=== PATIENT | female | born 1975 | race American Indian/Alaskan Native ===

== ENCOUNTER 2017-07-17 20:05 | Inpatient (IN) | payer OTHER ==
[2017-07-17 20:05] VITALS: BMI 36.8
[2017-07-17] MEDS ORDERED: Aspirin 325 mg EC Tablets PO STA (20:31)
--- NOTE | 2017-07-17 20:31 | C.PDOC ---
History Of Present Illness 42 year old female presents to the ED c/o on and off chest pain that started yesterday. Patient described her pain as dull, aching and non radiating and rates it a 4/10 discomfort. Patient reports pain started at work but since she has been feeling more discomfort. Patient denies fever, chill, nausea, vomit, SOB, weakness, numbness. Time Seen by Provider: 07/17/17 20:30 Chief Complaint (Nursing): Chest Pain History Per: Patient History/Exam Limitations: no limitations Onset/Duration Of Symptoms: Days Current Symptoms Are (Timing): Still Present Context: Other Severity: Moderate Pain Scale Rating Of: 4 Quality: Dull, Aching Modifying Factors: None Exacerbating Factors: None Recent travel outside of the [place]: No Additional History Per: Patient Past Medical History Reviewed: Historical Data, Nursing Documentation, Vital Signs Vital Signs: Last Vital Signs Temp 98.2 F 07/17/17 23:22 Pulse 66 07/17/17 23:22 Resp 14 07/17/17 23:22 BP 112/78 07/17/17 23:22 Pulse Ox 100 07/17/17 23:22 - Medical History PMH: Anemia (with iron transfusions), Asthma, Bronchitis, Colonic Polyps, Diabetes, Fractures (ORIF right wrist ), Gastritis, HTN, Migraine, Sleep Apnea Denies: Anxiety, Bipolar Disorder, COPD, Depression, Paranoia, Post Traumatic Stress Disorder, Chronic Kidney Disease, Schizophrenia Surgical History: Endoscopy - [facility] Procedures ENDO RECTUM POLYPECTOMY (07/27/14) ENDOSC POLYPECTOMY OF LG INTEST (07/27/14) INJECT/INFUSE ELECTROLYT (03/22/14) INJECT/INFUSE NEC (08/24/14) PHYSICAL THERAPY NEC (11/02/14) URETHRAL DILATION (02/22/13) Family History: States: No Known Family Hx - Social History Hx Tobacco Use: No Hx Alcohol Use: Yes Hx Substance Use: No - Immunization History Hx Tetanus Toxoid Vaccination: No Hx Influenza Vaccination: No Hx Pneumococcal Vaccination: No Review Of Systems Constitutional: Negative for: Fever, Chills Eyes: Negative for: Vision Change ENT: Negative for: Throat Pain Cardiovascular: Positive for: Chest Pain Respiratory: Negative for: Shortness of Breath Gastrointestinal: Negative for: Nausea, Vomiting, Diarrhea Genitourinary: Negative for: Dysuria Musculoskeletal: Negative for: Back Pain Skin: Negative for: Rash Neurological: Negative for: Weakness, Numbness, Headache Psych: Negative for: Anxiety Physical Exam - Physical Exam Appears: Non-toxic, No Acute Distress Skin: Warm, Dry Head: Normacephalic Eye(s): bilateral: Normal Inspection Nose: No Discharge Oral Mucosa: Moist Neck: Supple Chest: Symmetrical Cardiovascular: Rhythm Regular, No Murmur Respiratory: No Rales, No Rhonchi, No Wheezing Gastrointestinal/Abdominal: Soft, No Tenderness, No Guarding, No Rebound Back: Normal Inspection Extremity: Normal ROM Extremity: Bilateral: Atraumatic, Normal Color And Temperature, Normal ROM Pulses: Left Dorsalis Pedis: Normal, Right Dorsalis Pedis: Normal Neurological/Psych: Oriented x3, Normal Speech, Normal Cognition Gait: Steady ED Course And Treatment - Laboratory Results Result Diagrams: 07/17/17 20:57 07/17/17 20:57 ECG: Interpreted By Me, Viewed By Me ECG Rhythm: Sinus Rhythm (73), Nonspecific Changes O2 Sat by Pulse Oximetry: 100 (On RA) Pulse Ox Interpretation: Normal - Radiology CXR: Interpreted by Me, Viewed By Me CXR Interpretation: No: Infiltrates, Fracture, Pnemothorax Progress Note: Plan: - EKG. - Labs. - Ecotrin 325 mg PO. - Potassium chloride 20 meq. - Protonix 40 mg IVP. - UA Disposition Discussed With : Brianne Adler Comment: accepted the pt on his service and took over the care at 10:40 PM Doctor Will See Patient In The: Hospital Counseled Patient/Family Regarding: Studies Performed, Diagnosis - Disposition Disposition: HOSPITALIZED Disposition Time: 20:31 Condition: FAIR - POA Present On Arrival: None - Clinical Impression Clinical Impression: Chest pain, UTI (urinary tract infection) - Scribe Statement The provider has reviewed the documentation as recorded by the Scribe John Knutson All medical record entries made by the Scribe were at my direction and personally dictated by me. I have reviewed the chart and agree that the record accurately reflects my personal performance of the history, physical exam, medical decision making, and the department course for this patient. I have also personally directed, reviewed, and agree with the discharge instructions and disposition. Decision To Admit - Pt Status Changed To: Hospital Disposition Of: Inpatient - Admit Certification Admit to Inpatient:: After my assessment, the patient will require hospitalization for at least two midnights. This is because of the severity of symptoms shown, intensity of services needed, and/or the medical risk in this patient being treated as an outpatient. - InPatient: Physician Admission Certification: I certify that this patient requires 2 or more midnights of care for the following reason:: After my assessment, the patient will require hospitalization for at least two midnights. This is because of the severity of symptoms shown, intensity of services needed, and/or the medical risk in this patient being treated as an outpatient. - . Bed Request Type: Telemetry Admitting Physician: Brianne Adler Patient Diagnosis: Chest pain, UTI (urinary tract infection)
[2017-07-17] MEDS ORDERED: Aspirin 325 mg EC Tablets PO ONE (20:39)
[2017-07-17 21:01] LABS: BASO % 0.4 % (0.0-2.0); EOS # 0.1 K/uL (0.0-0.7); EOS % 1.7 % (0.0-4.0); HEMOGLOBIN 10.4 g/dL (11.0-16.0); LYMPH # 1.6 K/uL (1.0-4.3); LYMPH % 38.7 % (20.0-40.0); MEAN CELL VOLUME 87.6 fL (81.0-99.0); MEAN CORPUSCULAR HEMOGLOBIN 28.6 pg (27.0-31.0); MEAN CORPUSCULAR HGB CONC 32.7 g/dL (33.0-37.0); MONO # 0.3 K/uL (0.0-0.8); NEUT # 2.2 K/uL (1.8-7.0); NEUT % 52.2 % (50.0-75.0); NRBC % 0.1 % (0.0-2.0); RBC 3.63 Mil/uL (3.80-5.20); RED CELL DISTRIBUTION WIDTH 14.4 % (11.5-14.5); WHITE BLOOD COUNT 4.2 K/uL (4.8-10.8)
[2017-07-17 21:10] LABS: INR 1.1; PROTHROMBIN TIME 11.9 SECONDS (9.7-12.2)
[2017-07-17 21:13] LABS: ALB/GLOB RATIO 1.1 (1.0-2.1); ALBUMIN 3.7 g/dL (3.5-5.0); ALT/SGPT 18 U/L (9-52); AST/SGOT 19 U/L (14-36); BLOOD UREA NITROGEN 7 mg/dL (7-17); CALCIUM 8.5 mg/dl (8.6-10.4); GFR AFRICAN-AMERICAN > 60; GFR NON-AFRICAN AMERICAN > 60
[2017-07-17] MEDS ORDERED: Potassium Chloride 10 mEq ER Tab PO STA (21:34)
[2017-07-17] MEDS ORDERED: Potassium Chloride 10 mEq ER Tab PO ONE (21:42)
[2017-07-17 22:29] LABS: SQUAMOUS EPITHIAL 10 /hpf (0-5); URINE BACTERIA FEW (<OCC); URINE BILIRUBIN NEGATIVE (NEGATIVE); URINE BLOOD 1+ (NEGATIVE); URINE CLARITY Hazy (Clear); URINE COLOR Yellow (YELLOW); URINE GLUCOSE (UA) NORMAL (Normal); URINE LEUKOCYTE ESTERASE 1+ Leu/uL (Negative); URINE PROTEIN NEGATIVE (NEGATIVE)
[2017-07-17 22:37] LABS: HCG,QUALITATIVE URINE NEGATIVE (NEGATIVE)
[2017-07-17] MEDS ORDERED: Piperacill/Tazo 3.375gm in Dex 3.375 GM/50 ML BAG IVPB STA (23:59)
--- NOTE | 2017-07-18 09:14 | RAD ---
PROCEDURE: CHEST RADIOGRAPH, 1 VIEW HISTORY: cp COMPARISON: None available. FINDINGS: LUNGS: Clear. PLEURA: No pneumothorax or pleural fluid seen. CARDIOVASCULAR: Normal. OSSEOUS STRUCTURES: No significant abnormalities. VISUALIZED UPPER ABDOMEN: Normal. OTHER FINDINGS: None. IMPRESSION: No active disease.
[2017-07-18] MEDS: Multiple Vitamins Tab PO SCH (10:51)
[2017-07-18] MEDS: Pantoprazole 40 mg EC Tab PO SCH (10:52)
[2017-07-18] MEDS: Enoxaparin 40 mg Syringe SC SCH (10:52)
[2017-07-18 11:39] LABS: CK-MB 0.44 ng/mL (0.0-3.38)
[2017-07-18] MEDS ORDERED: Nitroglycerin 2% Ointment Foilpak UD TOP PRN (16:43)
--- NOTE | 2017-07-18 16:43 | CP.PCM.HP ---
Past Patient History - Infectious Disease Hx of Infectious Diseases: None - Tetanus Immunizations Tetanus Immunization: Unknown - Past Medical History & Family History Past Medical History?: Yes - Past Social History Smoking Status: Current Some Days Smoker - CARDIAC Hx Cardiac Disorders: Yes Hx Hypertension: Yes - PULMONARY Hx Respiratory Disorders: Yes Hx Asthma: Yes Hx Bronchitis: Yes Hx Chronic Obstructive Pulmonary Disease (COPD): No Hx Sleep Apnea: Yes - NEUROLOGICAL Hx Neurological Disorder: Yes Hx Migraine: Yes - HEENT Hx HEENT Problems: No - RENAL Hx Chronic Kidney Disease: No - ENDOCRINE/METABOLIC Hx Endocrine Disorders: Yes Hx Diabetes Mellitus Type 2: Yes (diet controlled) - HEMATOLOGICAL/ONCOLOGICAL Hx Blood Disorders: Yes Hx Anemia: Yes (with iron transfusions) - INTEGUMENTARY Hx Dermatological Problems: No - MUSCULOSKELETAL/RHEUMATOLOGICAL Hx Musculoskeletal Disorders: Yes Hx Falls: No Hx Fractures: Yes (ORIF right wrist ) - GASTROINTESTINAL Hx Gastrointestinal Disorders: Yes Hx Gastritis: Yes - GENITOURINARY/GYNECOLOGICAL Hx Genitourinary Disorders: Yes (C SECTION,TUBAL LIGATION) - PSYCHIATRIC Hx Psychophysiologic Disorder: No Hx Anxiety: No Hx Bipolar Disorder: No Hx Depression: No Hx Paranoia: No Hx Post Traumatic Stress Disorder: No Hx Schizophrenia: No Hx Substance Use: No - SURGICAL HISTORY Hx Surgeries: Yes Hx Gastric Bypass Surgery: Yes (gastric sleeve 2013) Hx Orthopedic Surgery: Yes (right wrist ORIF ) Other/Comment: Hiatal hernia Sx - ANESTHESIA Hx Anesthesia: Yes Hx Anesthesia Reactions: No Hx Malignant Hyperthermia: No Meds Allergies/Adverse Reactions: Allergies Allergy/AdvReac Type Severity Reaction Status Date / Time morphine Allergy Mild RASH Verified 07/17/17 20:15 shellfish derived Allergy Mild RASH Verified 07/17/17 20:15 hydromorphone [From Dilaudid] Allergy RASH Verified 07/17/17 20:15 ondansetron Allergy RASH Verified 07/17/17 20:15 [From Zofran (as hydrochloride)] seafood Allergy Severe URTICARIA Uncoded 07/17/17 20:15 dust Allergy ITCHING Uncoded 07/17/17 20:15 Physical Exam - Constitutional Appears: Well - Head Exam Head Exam: ATRAUMATIC, NORMAL INSPECTION, NORMOCEPHALIC - Eye Exam Eye Exam: EOMI, Normal appearance, PERRL Pupil Exam: NORMAL ACCOMODATION, PERRL - ENT Exam ENT Exam: Mucous Membranes Moist, Normal Exam - Neck Exam Neck exam: Positive for: Normal Inspection - Respiratory Exam Respiratory Exam: Decreased Breath Sounds - Cardiovascular Exam Cardiovascular Exam: REGULAR RHYTHM, +S1, +S2 - GI/Abdominal Exam GI & Abdominal Exam: Diminished Bowel Sounds, Soft - Rectal Exam Rectal Exam: Deferred Results - Vital Signs Recent Vital Signs: Last Vital Signs Temp 98.0 F 07/18/17 07:45 Pulse 64 07/18/17 16:35 Resp 20 07/18/17 07:45 BP 93/58 L 07/18/17 10:52 Pulse Ox 98 07/18/17 07:45 - Labs Result Diagrams: 07/17/17 20:57 07/17/17 20:57 Labs: Laboratory Results - last 24 hr 07/17/17 07/17/17 07/17/17 20:57 20:57 20:57 WBC 4.2 L RBC 3.63 L Hgb 10.4 L Hct 31.8 L MCV 87.6 MCH 28.6 MCHC 32.7 L RDW 14.4 Plt Count 293 MPV 7.0 L Neut % (Auto) 52.2 Lymph % (Auto) 38.7 Butts % (Auto) 7.0 Eos % (Auto) 1.7 Baso % (Auto) 0.4 Neut # (Auto) 2.2 Lymph # (Auto) 1.6 Butts # (Auto) 0.3 Eos # (Auto) 0.1 Baso # (Auto) 0.0 PT 11.9 INR 1.1 APTT 30 Sodium 141 Potassium 3.3 L Chloride 109 H Carbon Dioxide 21 L Anion Gap 14 BUN 7 Creatinine 0.7 Est GFR ( Amer) > 60 Est GFR (Non-Af Amer) > 60 POC Glucose (mg/dL) Random Glucose 95 Calcium 8.5 L Total Bilirubin 0.3 AST 19 ALT 18 Alkaline Phosphatase 58 Total Creatine Kinase CK-MB (Mass) Troponin I < 0.0120 Total Protein 7.0 Albumin 3.7 Globulin 3.3 Albumin/Globulin Ratio 1.1 Urine Color Urine Clarity Urine pH Ur Specific [place] Urine Protein Urine Glucose (UA) Urine Ketones Urine Blood Urine Nitrate Urine Bilirubin Urine Urobilinogen Ur Leukocyte Esterase Urine WBC (Auto) Urine RBC (Auto) Ur Squamous Epith Cells Urine Bacteria Urine HCG, Qual 07/17/17 07/18/17 07/18/17 22:37 06:10 11:09 WBC RBC Hgb Hct MCV MCH MCHC RDW Plt Count MPV Neut % (Auto) Lymph % (Auto) Butts % (Auto) Eos % (Auto) Baso % (Auto) Neut # (Auto) Lymph # (Auto) Butts # (Auto) Eos # (Auto) Baso # (Auto) PT INR APTT Sodium Potassium Chloride Carbon Dioxide Anion Gap BUN Creatinine Est GFR ( Amer) Est GFR (Non-Af Amer) POC Glucose (mg/dL) 90 Random Glucose Calcium Total Bilirubin AST ALT Alkaline Phosphatase Total Creatine Kinase 260 H CK-MB (Mass) 0.44 Troponin I < 0.0120 Total Protein Albumin Globulin Albumin/Globulin Ratio Urine Color Yellow Urine Clarity Hazy Urine pH 5.0 Ur Specific [place] 1.027 Urine Protein Negative Urine Glucose (UA) Normal Urine Ketones Negative Urine Blood 1+ H Urine Nitrate Negative Urine Bilirubin Negative Urine Urobilinogen 2.0 H Ur Leukocyte Esterase 1+ H Urine WBC (Auto) 22 H Urine RBC (Auto) 8 H Ur Squamous Epith Cells 10 H Urine Bacteria Few H Urine HCG, Qual Negative 07/18/17 11:11 WBC RBC Hgb Hct MCV MCH MCHC RDW Plt Count MPV Neut % (Auto) Lymph % (Auto) Butts % (Auto) Eos % (Auto) Baso % (Auto) Neut # (Auto) Lymph # (Auto) Butts # (Auto) Eos # (Auto) Baso # (Auto) PT INR APTT Sodium Potassium Chloride Carbon Dioxide Anion Gap BUN Creatinine Est GFR ( Amer) Est GFR (Non-Af Amer) POC Glucose (mg/dL) 110 Random Glucose Calcium Total Bilirubin AST ALT Alkaline Phosphatase Total Creatine Kinase CK-MB (Mass) Troponin I Total Protein Albumin Globulin Albumin/Globulin Ratio Urine Color Urine Clarity Urine pH Ur Specific [place] Urine Protein Urine Glucose (UA) Urine Ketones Urine Blood Urine Nitrate Urine Bilirubin Urine Urobilinogen Ur Leukocyte Esterase Urine WBC (Auto) Urine RBC (Auto) Ur Squamous Epith Cells Urine Bacteria Urine HCG, Qual
--- NOTE | 2017-07-18 17:01 | CP.PCM.CON ---
History of Present Illness - History of Present Illness History of Present Illness: 42 with HTN, DM, admitted with CP 02/19 had Echo ESTat [facility] no Ischemia EF 75%, now no TX, No EKG changes, neg ENZ. non cardiac CP, was referred for evaluation after an outpt EKG was reported abnormal Review of Systems - Review of Systems Systems not reviewed;Unavailable: Acuity of Condition - Constitutional Constitutional: Anorexia, Weakness - EENT Eyes: absent: Discharge Ears: absent: Ear Discharge, Dizziness Nose/Mouth/Throat: absent: Epistaxis - Cardiovascular Cardiovascular: Chest Pain. absent: Acrocyanosis, Claudication, Diaphoresis, Leg Edema, Palpitations, Syncope - Respiratory Respiratory: absent: Cough, Dyspnea, Hemoptysis - Gastrointestinal Gastrointestinal: absent: Abdominal Pain, Diarrhea, Vomiting - Genitourinary Genitourinary: absent: Hematuria Past Patient History - Infectious Disease Hx of Infectious Diseases: None - Tetanus Immunizations Tetanus Immunization: Unknown - Past Medical History & Family History Past Medical History?: Yes - Past Social History Smoking Status: Current Some Days Smoker - CARDIAC Hx Cardiac Disorders: Yes Hx Hypertension: Yes - PULMONARY Hx Respiratory Disorders: Yes Hx Asthma: Yes Hx Bronchitis: Yes Hx Chronic Obstructive Pulmonary Disease (COPD): No Hx Sleep Apnea: Yes - NEUROLOGICAL Hx Neurological Disorder: Yes Hx Migraine: Yes - HEENT Hx HEENT Problems: No - RENAL Hx Chronic Kidney Disease: No - ENDOCRINE/METABOLIC Hx Endocrine Disorders: Yes Hx Diabetes Mellitus Type 2: Yes (diet controlled) - HEMATOLOGICAL/ONCOLOGICAL Hx Blood Disorders: Yes Hx Anemia: Yes (with iron transfusions) - INTEGUMENTARY Hx Dermatological Problems: No - MUSCULOSKELETAL/RHEUMATOLOGICAL Hx Musculoskeletal Disorders: Yes Hx Falls: No Hx Fractures: Yes (ORIF right wrist ) - GASTROINTESTINAL Hx Gastrointestinal Disorders: Yes Hx Gastritis: Yes - GENITOURINARY/GYNECOLOGICAL Hx Genitourinary Disorders: Yes (C SECTION,TUBAL LIGATION) - PSYCHIATRIC Hx Psychophysiologic Disorder: No Hx Anxiety: No Hx Bipolar Disorder: No Hx Depression: No Hx Paranoia: No Hx Post Traumatic Stress Disorder: No Hx Schizophrenia: No Hx Substance Use: No - SURGICAL HISTORY Hx Surgeries: Yes Hx Gastric Bypass Surgery: Yes (gastric sleeve 2013) Hx Orthopedic Surgery: Yes (right wrist ORIF ) Other/Comment: Hiatal hernia Sx - ANESTHESIA Hx Anesthesia: Yes Hx Anesthesia Reactions: No Hx Malignant Hyperthermia: No Meds Home Medications: Home Medication List Medication Instructions Recorded Confirmed Type Aspirin 325 mg PO DAILY #30 tab 07/19/17 Rx Nicotine [Nicotine Patch] 1 each TD DAILY 30 Days #30 07/19/17 Rx patch.[id number] Allergies/Adverse Reactions: Allergies Allergy/AdvReac Type Severity Reaction Status Date / Time morphine Allergy Mild RASH Verified 07/17/17 20:15 shellfish derived Allergy Mild RASH Verified 07/17/17 20:15 hydromorphone [From Dilaudid] Allergy RASH Verified 07/17/17 20:15 ondansetron Allergy RASH Verified 07/17/17 20:15 [From Zofran (as hydrochloride)] seafood Allergy Severe URTICARIA Uncoded 07/17/17 20:15 dust Allergy ITCHING Uncoded 07/17/17 20:15 - Medications Medications: Current Medications Aspirin (Aspirin) 325 mg PO DAILY [facility] Last Admin: 07/18/17 10:52 Dose: 325 mg Enoxaparin Sodium (Lovenox) 40 mg SC DAILY [facility] Last Admin: 07/18/17 10:52 Dose: 40 mg Ferrous Sulfate (Feosol) 325 mg PO BID [facility] Last Admin: 07/18/17 10:51 Dose: 325 mg Metoprolol Tartrate (Lopressor) 25 mg PO DAILY [facility] Last Admin: 07/18/17 10:52 Dose: Not Given Montelukast Sodium (Singulair) 10 mg PO [facility] Multivitamins (Hexavitamin) 1 tab PO DAILY [facility] Last Admin: 07/18/17 10:51 Dose: 1 tab Nitroglycerin (Nitro-Bid 2% Oint) 1 ea TOP Q6 PRN PRN Reason: chest pain Pantoprazole Sodium (Protonix Ec Tab) 40 mg PO DAILY [facility] Last Admin: 07/18/17 10:52 Dose: 40 mg Rosuvastatin Calcium (Crestor) 10 mg PO [facility] Physical Exam - Constitutional Appears: Non-toxic - Head Exam Head Exam: ATRAUMATIC - Eye Exam Eye Exam: EOMI - ENT Exam ENT Exam: Mucous Membranes Moist - Neck Exam Neck exam: Negative for: Lymphadenopathy, Thyromegaly - Respiratory Exam Respiratory Exam: Clear to Auscultation Bilateral. absent: Rales - Cardiovascular Exam Cardiovascular Exam: REGULAR RHYTHM, Systolic Murmur - GI/Abdominal Exam GI & Abdominal Exam: Normal Bowel Sounds. absent: Organomegaly - Rectal Exam Rectal Exam: Deferred - Extremities Exam Extremities exam: Positive for: normal capillary refill. Negative for: calf tenderness - Neurological Exam Neurological exam: Alert, Oriented x3 - Psychiatric Exam Psychiatric exam: Normal Mood - Skin Skin Exam: Dry Results - Vital Signs Recent Vital Signs: Last Vital Signs Temp 98.0 F 07/18/17 07:45 Pulse 64 07/18/17 16:35 Resp 20 07/18/17 07:45 BP 93/58 L 07/18/17 10:52 Pulse Ox 98 07/18/17 07:45 - Labs Result Diagrams: 07/17/17 20:57 07/17/17 20:57 Labs: Laboratory Results - last 24 hr 07/17/17 07/17/17 07/17/17 20:57 20:57 20:57 WBC 4.2 L RBC 3.63 L Hgb 10.4 L Hct 31.8 L MCV 87.6 MCH 28.6 MCHC 32.7 L RDW 14.4 Plt Count 293 MPV 7.0 L Neut % (Auto) 52.2 Lymph % (Auto) 38.7 [place] % (Auto) 7.0 Eos % (Auto) 1.7 Baso % (Auto) 0.4 Neut # (Auto) 2.2 Lymph # (Auto) 1.6 [place] # (Auto) 0.3 Eos # (Auto) 0.1 Baso # (Auto) 0.0 PT 11.9 INR 1.1 APTT 30 Sodium 141 Potassium 3.3 L Chloride 109 H Carbon Dioxide 21 L Anion Gap 14 BUN 7 Creatinine 0.7 Est GFR ( Amer) > 60 Est GFR (Non-Af Amer) > 60 POC Glucose (mg/dL) Random Glucose 95 Calcium 8.5 L Total Bilirubin 0.3 AST 19 ALT 18 Alkaline Phosphatase 58 Total Creatine Kinase CK-MB (Mass) Troponin I < 0.0120 Total Protein 7.0 Albumin 3.7 Globulin 3.3 Albumin/Globulin Ratio 1.1 Urine Color Urine Clarity Urine pH Ur Specific [place] Urine Protein Urine Glucose (UA) Urine Ketones Urine Blood Urine Nitrate Urine Bilirubin Urine Urobilinogen Ur Leukocyte Esterase Urine WBC (Auto) Urine RBC (Auto) Ur Squamous Epith Cells Urine Bacteria Urine HCG, Qual 07/17/17 07/18/17 07/18/17 22:37 06:10 11:09 WBC RBC Hgb Hct MCV MCH MCHC RDW Plt Count MPV Neut % (Auto) Lymph % (Auto) [place] % (Auto) Eos % (Auto) Baso % (Auto) Neut # (Auto) Lymph # (Auto) [place] # (Auto) Eos # (Auto) Baso # (Auto) PT INR APTT Sodium Potassium Chloride Carbon Dioxide Anion Gap BUN Creatinine Est GFR ( Amer) Est GFR (Non-Af Amer) POC Glucose (mg/dL) 90 Random Glucose Calcium Total Bilirubin AST ALT Alkaline Phosphatase Total Creatine Kinase 260 H CK-MB (Mass) 0.44 Troponin I < 0.0120 Total Protein Albumin Globulin Albumin/Globulin Ratio Urine Color Yellow Urine Clarity Hazy Urine pH 5.0 Ur Specific [place] 1.027 Urine Protein Negative Urine Glucose (UA) Normal Urine Ketones Negative Urine Blood 1+ H Urine Nitrate Negative Urine Bilirubin Negative Urine Urobilinogen 2.0 H Ur Leukocyte Esterase 1+ H Urine WBC (Auto) 22 H Urine RBC (Auto) 8 H Ur Squamous Epith Cells 10 H Urine Bacteria Few H Urine HCG, Qual Negative 07/18/17 11:11 WBC RBC Hgb Hct MCV MCH MCHC RDW Plt Count MPV Neut % (Auto) Lymph % (Auto) [place] % (Auto) Eos % (Auto) Baso % (Auto) Neut # (Auto) Lymph # (Auto) [place] # (Auto) Eos # (Auto) Baso # (Auto) PT INR APTT Sodium Potassium Chloride Carbon Dioxide Anion Gap BUN Creatinine Est GFR ( Amer) Est GFR (Non-Af Amer) POC Glucose (mg/dL) 110 Random Glucose Calcium Total Bilirubin AST ALT Alkaline Phosphatase Total Creatine Kinase CK-MB (Mass) Troponin I Total Protein Albumin Globulin Albumin/Globulin Ratio Urine Color Urine Clarity Urine pH Ur Specific [place] Urine Protein Urine Glucose (UA) Urine Ketones Urine Blood Urine Nitrate Urine Bilirubin Urine Urobilinogen Ur Leukocyte Esterase Urine WBC (Auto) Urine RBC (Auto) Ur Squamous Epith Cells Urine Bacteria Urine HCG, Qual Assessment & Plan (1) Chest pain Status: Acute
[2017-07-18 20:34] LABS: CK-MB 0.43 ng/mL (0.0-3.38)
[2017-07-19 07:48] VITALS: TEMP 97.9
[2017-07-19 08:16] LABS: CK-MB 0.33 ng/mL (0.0-3.38)
[2017-07-19] MEDS: Pantoprazole 40 mg EC Tab PO SCH (09:09)
[2017-07-19] MEDS: Enoxaparin 40 mg Syringe SC SCH (09:09)
[2017-07-19] MEDS: Multiple Vitamins Tab PO SCH (09:09)
--- NOTE | 2017-07-19 14:09 | CP.PCM.PN ---
Subjective - Date & Time of Evaluation Date of Evaluation: 07/19/17 Time of Evaluation: 14:06 - Subjective Subjective: PGY2 progress note for Dr. Adler 42 year old female with past medical history of HTN, Diabetes, Gastritis, and asthma is admitted for chest pain rule out ACS. Patient stated that CP began the day before she presented to ED. CP was located on left side of chest and radiated to left shoulder. Prior to CP starting, pt had episode of N/V/D and rhinorrhea. Pt states that N/V/D have resolved. Denies having any coughing. Currently denies having any CP, SOB, abd pain, N/V/D/C, LE swelling or pain. Patient has no hx of blood clots and no recent travels. PSH: Gastric Sleeve, Hiatal hernia repair FMH: father had esophageal cancer Social Hx: 1/4 ppd of cigarettes, denies alcohol or illicit drug use Objective - Vital Signs/Intake and Output Vital Signs (last 24 hours): Temp Pulse Resp BP Pulse Ox 97.9 F 71 18 97/61 L 98 07/19/17 07:00 07/19/17 09:08 07/19/17 07:00 07/19/17 09:08 07/19/17 07:00 - Medications Medications: Current Medications Aspirin (Aspirin) 325 mg PO DAILY [facility] Last Admin: 07/19/17 09:09 Dose: 325 mg Enoxaparin Sodium (Lovenox) 40 mg SC DAILY [facility] Last Admin: 07/19/17 09:09 Dose: 40 mg Ferrous Sulfate (Feosol) 325 mg PO BID [facility] Last Admin: 07/19/17 09:09 Dose: 325 mg Metoprolol Tartrate (Lopressor) 25 mg PO DAILY [facility] Last Admin: 07/19/17 09:09 Dose: Not Given Montelukast Sodium (Singulair) 10 mg PO HS [facility] Last Admin: 07/18/17 21:38 Dose: 10 mg Multivitamins (Hexavitamin) 1 tab PO DAILY [facility] Last Admin: 07/19/17 09:09 Dose: 1 tab Nitroglycerin (Nitro-Bid 2% Oint) 1 ea TOP Q6 PRN PRN Reason: chest pain Pantoprazole Sodium (Protonix Ec Tab) 40 mg PO DAILY [facility] Last Admin: 07/19/17 09:09 Dose: 40 mg Rosuvastatin Calcium (Crestor) 10 mg PO HS [facility] Last Admin: 07/18/17 21:38 Dose: 10 mg - Labs Labs: 07/17/17 20:57 07/17/17 20:57 PT 11.9 SECONDS (9.7-12.2) 07/17/17 20:57 INR 1.1 07/17/17 20:57 APTT 30 SECONDS (21-34) 07/17/17 20:57 - Constitutional Appears: Non-toxic, No Acute Distress - Head Exam Head Exam: ATRAUMATIC - ENT Exam ENT Exam: Mucous Membranes Moist - Respiratory Exam Respiratory Exam: Clear to Ausculation Bilateral, NORMAL BREATHING PATTERN. absent: Accessory Muscle Use, Rales, Rhonchi, Wheezes, Respiratory Distress - Cardiovascular Exam Cardiovascular Exam: REGULAR RHYTHM, +S1, +S2. absent: Gallop, Rubs, Murmur - GI/Abdominal Exam GI & Abdominal Exam: Soft, Normal Bowel Sounds. absent: Distended, Firm, Guarding, Rigid, Tenderness, Organomegaly - Extremities Exam Extremities Exam: absent: Pedal Edema, Tenderness - Neurological Exam Neurological Exam: Alert, Awake, Oriented x3 - Psychiatric Exam Psychiatric exam: Normal Affect, Normal Mood - Skin Skin Exam: Dry, Intact, Normal Color, Warm Assessment and Plan - Assessment and Plan (Free Text) Plan: Chest pain R/O ACS - Troponins x 3 negative. Initial EKG was normal - Cardiology, Dr. Pereira was consulted. Per cardio, CP likely not cardiac related - Pt started on Aspirin 325 mg po qd - Nitro q6 prn - Last HgbA1c is 12/2016 was 6.3 - Lipid panel was normal - Pt started on Crestor - CT of chest showed no infiltrates or pneumothorax. Few scattered subpleural nodular opacities seen along posterior pleural surface right upper and to lesser degree left lower lobes. Patient is asked to follow up with supervisory civil engineer outpt for further workup. HTN - Continue Lopressor tartrate 25 mg po qd Anemia - Continue home medication: Feosol Prophylaxis - Protonix - Lovenox All managements and orders per Dr. Adler Patient is stable for discharge per Dr. Adler Patient is asked to follow up with PMD upon discharge Patient is asked to follow up with lead military analyst, Dr. Pereira upon discharge. Patient is to follow up with supervisory civil engineer upon discharge. Patient given referral of supervisory civil engineer and a copy of her CT scan. Patient is discharged with the following medications: Aspirin 81 mg po qd #30 tabs, Nicotin patch #30. Patient is asked to continue taking her home medications as prescribed. Patient is told to return to ED if symptoms worsen.
[2017-07-19] MEDS: Potassium Chloride 20 mEq ER Tab PO SCH ×2 (16:17→17:02)
[2017-07-19 16:34] VITALS: BP 103/72; RESP 20; O2SAT 96
--- NOTE | 2017-07-19 16:47 | CT ---
PROCEDURE: CT scan of the chest dated 07/19/2017 HISTORY: Chest pain. COMPARISON: Comparison made with prior chest radiograph 07/23/2017 TECHNIQUE: Contiguous axial images were obtained through the chest without intravenous contrast enhancement. Sagittal and coronal reconstructions were performed. Radiation dose (DLP): 890.88 the the mGy-cm. This CT exam was performed using one or more of the following dose reduction techniques: Automated exposure control, adjustment of the mA and/or kV according to patient size, and/or use of iterative reconstruction technique. FINDINGS: LUNGS: No focal consolidation. There are scattered areas of subpleural on nodular opacities that may represent areas of scarring in the right lower lobe and to a lesser degree left lower lobe. The no evidence of effusion or pneumothorax. Visualized airway clear. MEDIASTINUM: Heart size is within range of normal. No significant pericardial effusion. Ascending thoracic aorta measures approximately 2.9 cm and descending thoracic aorta measures approximately 2.6 cm. Pulmonary trunk measures approximately 2.9 cm. Central airways are midline and patent. Nose large central endoluminal lesions. No significant mediastinal adenopathy. Evaluation for hilar adenopathy limited due to the lack of circulating intravenous contrast material. There appears to be small amount of fluid layering within upper esophagus possibly due to reflux versus dysmotility. Small hiatal hernia with slight wall thickening of the distal esophagus in part due to extrusion of gastric mucosa this patient who is of apparent postoperative gastric sleeve surgery. . Possibility of esophagitis not excluded. PLEURA: As above. BONES: Minor multilevel degenerative spondylosis of the thoracic spine. UPPER ABDOMEN: Grossly unremarkable. OTHER FINDINGS: None. IMPRESSION: No acute infiltrates or effusions. No evidence of pneumothorax. There are few scattered subpleural nodular opacities seen along the posterior pleural surface right upper and to a lesser degree left lower lobes. Postoperative changes of gastric sleeve surgery.
[2017-07-19 16:49] VITALS: PULSE 57
--- NOTE | 2017-07-19 18:36 | CP.PCM.PN ---
Subjective - Date & Time of Evaluation Date of Evaluation: 07/19/17 Time of Evaluation: 08:00 - Subjective Subjective: clinically same Objective - Vital Signs/Intake and Output Vital Signs (last 24 hours): Temp Pulse Resp BP Pulse Ox 97.9 F 57 L 20 103/72 96 07/19/17 15:00 07/19/17 16:47 07/19/17 15:00 07/19/17 15:00 07/19/17 15:00 Intake and Output: 07/19/17 07/19/17 06:59 18:59 Intake Total 830 Balance 830 - Medications Medications: Current Medications Aspirin (Aspirin) 325 mg PO DAILY [facility] Last Admin: 07/19/17 09:09 Dose: 325 mg Enoxaparin Sodium (Lovenox) 40 mg SC DAILY [facility] Last Admin: 07/19/17 09:09 Dose: 40 mg Ferrous Sulfate (Feosol) 325 mg PO BID [facility] Last Admin: 07/19/17 17:02 Dose: 325 mg Metoprolol Tartrate (Lopressor) 25 mg PO DAILY [facility] Last Admin: 07/19/17 09:09 Dose: Not Given Montelukast Sodium (Singulair) 10 mg PO HS [facility] Last Admin: 07/18/17 21:38 Dose: 10 mg Multivitamins (Hexavitamin) 1 tab PO DAILY [facility] Last Admin: 07/19/17 09:09 Dose: 1 tab Nitroglycerin (Nitro-Bid 2% Oint) 1 ea TOP Q6 PRN PRN Reason: chest pain Pantoprazole Sodium (Protonix Ec Tab) 40 mg PO DAILY [facility] Last Admin: 07/19/17 09:09 Dose: 40 mg Rosuvastatin Calcium (Crestor) 10 mg PO HS [facility] Last Admin: 07/18/17 21:38 Dose: 10 mg - Labs Labs: 07/17/17 20:57 07/17/17 20:57 PT 11.9 SECONDS (9.7-12.2) 07/17/17 20:57 INR 1.1 07/17/17 20:57 APTT 30 SECONDS (21-34) 07/17/17 20:57
--- NOTE | 2017-07-19 23:40 | CP.PCM.PN ---
Subjective - Date & Time of Evaluation Date of Evaluation: 07/19/17 Time of Evaluation: 12:00 - Subjective Subjective: no further pain, neg [place], unlikely PE clinically, further w/u as outpt Objective - Vital Signs/Intake and Output Vital Signs (last 24 hours): Temp Pulse Resp BP Pulse Ox 97.9 F 57 L 20 103/72 96 07/19/17 15:00 07/19/17 16:47 07/19/17 15:00 07/19/17 15:00 07/19/17 15:00 Intake and Output: 07/19/17 07/20/17 18:59 06:59 Intake Total 830 Balance 830 - Labs Labs: 07/17/17 20:57 07/17/17 20:57 PT 11.9 SECONDS (9.7-12.2) 07/17/17 20:57 INR 1.1 07/17/17 20:57 APTT 30 SECONDS (21-34) 07/17/17 20:57 - Constitutional Appears: Non-toxic - Head Exam Head Exam: ATRAUMATIC - Eye Exam Eye Exam: EOMI - ENT Exam ENT Exam: Mucous Membranes Moist - Neck Exam Neck Exam: absent: Lymphadenopathy, Thyromegaly - Respiratory Exam Respiratory Exam: Clear to Ausculation Bilateral. absent: Rales - Cardiovascular Exam Cardiovascular Exam: REGULAR RHYTHM, Murmur - GI/Abdominal Exam GI & Abdominal Exam: Organomegaly. absent: Normal Bowel Sounds - Rectal Exam Rectal Exam: Deferred - Extremities Exam Extremities Exam: Normal Capillary Refill. absent: Calf Tenderness - Neurological Exam Neurological Exam: Alert, Oriented x3 - Psychiatric Exam Psychiatric exam: Normal Mood - Skin Skin Exam: Dry Assessment and Plan (1) Chest pain Status: Acute
== END 2017-07-19 19:00 | disposition home or self-care (01) | DRG 143 ==
LOC: C.ER 20:05 → C.9E 22:40 → C.6T 23:08 → C.5S 07-19 12:32
PROVIDERS: ADMIT Internal Medicine Nephrology; ATTEND Internal Medicine Nephrology
DX: R07.89 Other chest pain (principal); N39.0 Urinary tract infection, site not specified; E11.9 Type 2 diabetes mellitus without complications; J45.909 Unspecified asthma, uncomplicated; F17.210 Nicotine dependence, cigarettes, uncomplicated; G47.30 Sleep apnea, unspecified; I10 Essential (primary) hypertension; Z79.82 Long term (current) use of aspirin; Z80.0 Family history of malignant neoplasm of digestive organs; Z86.010 Personal history of colon polyps; Z98.84 Bariatric surgery status